=== PATIENT | male | born 2000 | race Caucasian/White ===

== ENCOUNTER 2025-04-18 17:21 | Emergency (ER) | payer SELFPAY ==
[~2025-04-18] VITALS: Ht 188 cm; Wt 72.7 kg
[2025-04-18 17:28] VITALS: TEMP 99.1
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
[2025-04-18 18:07] VITALS: BP 139/79; PULSE 94; RESP 18; O2SAT 100
== END 2025-04-18 18:14 | disposition home or self-care (01) ==
LOC: ER 17:25
DX: S30.811A Abrasion of abdominal wall, initial encounter (principal); X58.XXXA Exposure to other specified factors, initial encounter; Y93.89 Activity, other specified; Y92.89 Other specified places as the place of occurrence of the external cause; Y99.8 Other external cause status
CPT/HCPCS: 71045; 99283